=== PATIENT | female | born 1990 | race American Indian/Alaskan Native ===

== ENCOUNTER 2020-01-29 14:10 | Emergency (ER) | payer BC ==
--- NOTE | 2020-01-29 15:27 | XRay Report ---
CHEST 2 VIEWS INDICATION / CLINICAL INFORMATION: sob/cp. COMPARISON: None available. FINDINGS: SUPPORT DEVICES: None. HEART / MEDIASTINUM: No significant abnormality. LUNGS / PLEURA: No significant pulmonary or pleural abnormality. No pneumothorax. ADDITIONAL FINDINGS: Scoliosis of the thoracic spine is noted. IMPRESSION: 1. No acute findings. Signer Name: Dariel Vaughan MD Signed: 01/29/2020 3:23 PM Workstation Name: [id number]
--- NOTE | 2020-01-29 18:11 | Emergency Department Report ---
ED General Adult HPI - General Chief complaint: Dyspnea/Respdistress Stated complaint: CHEST PAIN/SOB Time Seen by Provider: 01/29/20 17:31 Source: patient Mode of arrival: Ambulatory Limitations: No Limitations - History of Present Illness Initial comments: This is a 29-year-old female with no prior medical history who presents the ED today complaining of shortness of breath with exertion that started today. Patient states she was climbing stairs at home when she felt short of breath. Patient does note that she had a brother who was tested and positive for cold feet. Patient states her brother is at home being quarantined. Patient also states that she may have been exposed at work so she was worried. Patient denies any fever/chills/nausea vomiting, coughing, chest pain, headache, blurry vision. - Related Data Allergies Allergy/AdvReac Type Severity Reaction Status Date / Time No Known Allergies Allergy Unverified 01/29/20 14:36 ED Review of Systems ROS: Stated complaint: CHEST PAIN/SOB Other details as noted in HPI Comment: All other systems reviewed and negative ED Past Medical Hx - Past Medical History Previous Medical History?: No - Surgical History Past Surgical History?: Yes Hx Appendectomy: Yes - Social History Smoking Status: Current Some Day Smoker Substance Use Type: None ED Physical Exam - General Limitations: No Limitations General appearance: alert, in no apparent distress - Head Head exam: Present: atraumatic, normocephalic - Eye Eye exam: Present: normal appearance - ENT ENT exam: Present: mucous membranes moist - Neck Neck exam: Present: normal inspection - Respiratory Respiratory exam: Present: normal lung sounds bilaterally. Absent: respiratory distress, wheezes, rales, rhonchi, chest wall tenderness, accessory muscle use, decreased breath sounds - Cardiovascular Cardiovascular Exam: Present: regular rate, normal rhythm. Absent: systolic murmur, diastolic murmur, rubs, gallop - GI/Abdominal GI/Abdominal exam: Present: soft, normal bowel sounds - Extremities Exam Extremities exam: Present: normal inspection - Back Exam Back exam: Present: normal inspection - Neurological Exam Neurological exam: Present: alert, oriented X3 - Psychiatric Psychiatric exam: Present: normal affect, normal mood - Skin Skin exam: Present: warm, dry, intact, normal color. Absent: rash ED Course Vital Signs 01/29/20 14:33 Temperature 98 F Pulse Rate 67 Respiratory 22 Rate Blood Pressure 130/76 O2 Sat by Pulse 100 Oximetry ED Medical Decision Making - Radiology Data Radiology results: report reviewed, image reviewed CHEST 2 VIEWS INDICATION / CLINICAL INFORMATION: sob/cp. COMPARISON: None available. FINDINGS: SUPPORT DEVICES: None. HEART / MEDIASTINUM: No significant abnormality. LUNGS / PLEURA: No significant pulmonary or pleural abnormality. No pneumothorax. ADDITIONAL FINDINGS: Scoliosis of the thoracic spine is noted. IMPRESSION: 1. No acute findings. Signer Name: Dariel Vaughan MD Signed: 01/29/2020 3:23 PM Workstation Name: [id number] Transcribed By: KANDIS Dictated By: Dariel Vaughan MD Electronically Authenticated By: Dariel Vaughan MD Signed Date/Time: 01/29/20 1523 - Medical Decision Making 29 year-old male presents with upper respiratory symptoms no fever during the ED stay. Chest x-ray shows no acute findings. Discussed with mother symptomatic relief with [id number] medications. Discussed continue Tylenol and Motrin as needed for fever and pain. Discussed increase fluids and diet intake. Discussed rest much needed. Discussed daily vitamin C for immune booster. Discussed follow-up with pcp in 3-5 days. Patient's mother verbally states she understands and will comply the following instructions and follow-up. Patient saturation did not reduce after exertion in the ED. Discussed with patient to stay home for 14 days and self quarantine. Discussed with patient she may return to the ED if any new or onset of symptoms. Patient is in no respiratory distress during ED stay. Vital signs stable. Patient is in no acute distress Heart department number given to patient to contact for possible testing at home. There was no reduction in oxygen saturation upon exertion here in the ED Critical care attestation.: If time is entered above; I have spent that time in minutes in the direct care of this critically ill patient, excluding procedure time. ED Disposition Clinical Impression: URI (upper respiratory infection) Disposition: DC-01 TO HOME OR SELFCARE Is pt being admited?: No Does the pt Need Aspirin: No Condition: Stable Instructions: COVID-19 Additional Instructions: Make sure to follow up with the primary care physician as discussed. Stay home and self quarantine for 14 days If you have any worsening symptoms or develop new symptoms please return to ED immediately. Referrals: PRIMARY CARE, [Primary Care Provider] - 3-5 Days [facility] [Outside] - 3-5 Days [facility] [Outside] - 3-5 Days [facility] [Outside] - 3-5 Days Forms: Accompanied Note, Work/School Release Form(ED) Time of Disposition: 18:28
[2020-01-29 19:06] VITALS: BP 95/76
== END 2020-01-29 19:00 | disposition home or self-care (01) ==
LOC: ED 14:10
DX: J06.9 Acute upper respiratory infection, unspecified (principal); F17.200 Nicotine dependence, unspecified, uncomplicated; Z90.49 Acquired absence of other specified parts of digestive tract
CPT/HCPCS: 71046